=== PATIENT | male | born 1995 | race Two or more races ===

== ENCOUNTER 2018-07-02 19:39 | Emergency (ER) | payer BC, OTHER ==
[2018-07-02] MEDS ORDERED: AMOXICILLIN TR/POT CLAVULANATE 500-125 MG TAB PO ONE (21:27)
--- NOTE | 2018-07-02 21:33 | ER Document Report ---
HPI - HPI Pain Level: 1 Notes: Patient is a 22-year-old male with no significant past medical history who presents to the ED complaining of a dog bite to his right thumb and his lower lip/upper lip prior to arrival. Patient was working in a house all day with his father and the dog was playful and happy all day long. Patient went to pet the dog at the end to say goodbye which is when the dog bit him. Patient states that he was in the dog's face at that time. The dog is otherwise not been acting abnormal or ill. They are unsure of the breed of the dog. The ulnar states that the immunizations including rabies is up-to-date, but will verify records in the morning. Patient states that he is otherwise eating and drinking without difficulties. He has no other concerns or complaints. tetanus was updated 2 years ago. Denies drug allergies. Denies any headache, fever, neck pain, URI, sore throat, chest pain, palpitations, syncope, cough, shortness of breath, wheeze, dyspnea, abdominal pain, nausea/vomiting/diarrhea, urinary retention, dysuria, hematuria, loss of control of bowel or bladder, numbness/tingling, muscle paralysis/weakness, or rash. - ROS Systems Reviewed and Negative: Yes All other systems reviewed and negative - CONSTITUTIONAL Constitutional: DENIES: Fever, Chills - NEURO Neurology: DENIES: Headache, Weakness, Vision blurred, Dizzinesss / Vertigo - CARDIOVASCULAR Cardiovascular: DENIES: Chest pain - RESPIRATORY Respiratory: DENIES: Trouble Breathing, Coughing - MUSCULOSKELETAL Musculoskeletal: REPORTS: Extremity pain Past Medical History - Social History Smoking Status: Never Smoker Family History: Reviewed & Not Pertinent Patient has suicidal ideation: No Patient has homicidal ideation: No Renal/ Medical History: Denies: Hx Peritoneal Dialysis Vertical Provider Document - CONSTITUTIONAL Agree With Documented VS: Yes Notes: PHYSICAL EXAMINATION: GENERAL: Well-appearing, well-nourished and in no acute distress. HEAD: Atraumatic, normocephalic. EYES: Pupils equal round and reactive to light, extraocular movements intact, sclera anicteric, conjunctiva are normal. ENT: EAC clear b/l. TM's intact b/l without erythema, fluid, or perforation. Nares patent and without discharge. oropharynx clear without exudates. No tonsilar hypertrophy or erythema. Moist mucous membranes. No sinus tenderness. Mouth: no missing or loose teeth. NECK: Normal range of motion, supple without lymphadenopathy LUNGS: Breath sounds clear to auscultation bilaterally and equal. No wheezes rales or rhonchi. HEART: Regular rate and rhythm without murmurs, rubs, gallops. ABDOMEN: Soft, nontender, nondistended abdomen. No guarding, no rebound. No masses appreciated. Normal bowel sounds present. No CVA tenderness bilaterally. Musculoskeletal: Rt thumb: FROM to passive/active. Strength 5+/5. N/V intact distal. No bony tenderness. Extremities: No cyanosis, clubbing, or edema b/l. Peripheral pulses 2+. Capillary refill less than 3 seconds. NEUROLOGICAL: Cranial nerves grossly intact. Normal speech, normal gait. Normal sensory, motor exams PSYCH: Normal mood, normal affect. SKIN: upper lip small superficial puncture/abrasion wound noted w/o active bleeding superior to the vermilion. There are two small puncture holes to the rt distal thumb bilaterally w/o active bleeding. - INFECTION CONTROL TRAVEL OUTSIDE OF THE [place] IN LAST 30 DAYS: No Course - Re-evaluation Re-evalutation: 07/02/18 21:31 Patient is an afebrile, well-hydrated, 22-year-old male who presents to the ED with a dog bite/puncture wound to his right upper lip and right thumb. Vitals are acceptable. PE is otherwise unremarkable for any neurovascular compromise, obvious tendon/ligament rupture, obvious fracture/dislocation, retained foreign body, septic joint. The puncture to the upper lip does not cross the vermilion border. There is no gaping wound that warrants loose closure. He is nontoxic- appearing and is tolerating p.o. without difficulties. I did review rabies vaccination thoroughly with the father and patient and they declined at this time. Immunizations reported to be up-to-date otherwise for the patient. wounds thoroughly irrigated and cleansed with wound dressings placed. First dose of Augmentin given p.o. today. I will send home with a prescription for Augmentin. No other labs or imaging warranted. Recheck with your PCM in 3-5 days. Return to the ED with any worsening/concerning symptoms otherwise as reviewed in discharge. Patient is in agreement. - Vital Signs Vital signs: Temp Pulse Resp BP Pulse Ox 98.3 F 84 16 130/71 H 97 10/02/18 20:14 07/02/18 20:14 07/02/18 20:14 07/02/18 20:14 07/02/18 20:14 Discharge - Discharge Clinical Impression: Dog bite Qualifiers: Encounter type: initial encounter Qualified Code(s): W54.0XXA - Bitten by dog, initial encounter Condition: Stable Disposition: HOME, SELF-CARE Instructions: Animal Bites ([facility]) Additional Instructions: Keep the skin clean Wash with soap and water Tylenol/ibuprofen if needed Triple antibiotic ointment daily Take medication as directed Monitor for any worsening symptoms Recheck with your PCM in 3-5 days Return to the ED with any worsening symptoms and/or development of fever, headache, chest pain, palpitations, syncope, shortness of breath, trouble breathing, abdominal pain, n/v/d, abscess, purulent discharge, red streaks, worsening swelling, or other worsening symptoms that are concerning to you. Prescriptions: Amox Tr/Potassium Clavulanate [Augmentin 875-125 Tablet] 1 tab PO BID 10 Days # 20 tablet Forms: Elevated Blood Pressure Referrals: [facility] [Provider Group] - Follow up as needed
[2018-07-02] MEDS ORDERED: ACETAMINOPHEN 325 MG TABLET PO ONE (21:37)
[2018-07-02 21:45] VITALS: BP 134/90
== END 2018-07-02 21:44 | disposition home or self-care (01) ==
LOC: EDBD → ER 19:39
DX: S61.051A Open bite of right thumb without damage to nail, initial encounter (principal); S01.551A Open bite of lip, initial encounter; W54.0XXA Bitten by dog, initial encounter; Y92.009 Unspecified place in unspecified non-institutional (private) residence as the place of occurrence of the external cause
CPT/HCPCS: 99283